=== PATIENT | female | born 1945 | race African-American/Black ===

== ENCOUNTER 2017-10-22 19:43 | Observation (INO) | payer OTHER ==
[~2017-10-22] VITALS: Ht 167.6 cm; Wt 79.1 kg
[~2017-10-22 19:43] MED LIST: ADULT ASPIRIN81 MG PO; ANALGESIC BALM28 GM TP; Colace PO; Feosol PO; LIDODERM 5% P1 PATCH TD; LOTREL 10/21 CAPSULE PO; LOTREL 5/101 CAPSULE PO; PLAVIX75 MG PO; PRILOSEC OTC20 M1 PO; Protonix PO; SENNA LAXATIVE8.6 MG PO; THERAGRAN1 TABLET PO; TYLENOL REGULA325 MG PO; ULTRAM50 MG PO
[2017-10-22 21:04] LABS: BASOPHIL (%) 0.4 % (0-1); EOSINOPHIL (%) 1.7 % (0-5); EOSINOPHIL COUNT 0.1 K/uL (0-0.3); HEMATOCRIT 32.8 % (36.0-46.0); HEMOGLOBIN 11.1 G/DL (11.9-15.5); IMMATURE GRANULOCYTE (%) 0.4 % (0.0-0.7); LYMPHOCYTE COUNT 2.2 K/uL (1.0-2.8); MCH 30.3 PG (29.0-34.0); MCHC 33.8 G/DL (30.0-36.0); MCV 89.6 FL (83-99); MONOCYTE (%) 10.7 % (3-12); MONOCYTE COUNT 0.5 K/uL (0-0.8); NEUTROPHIL (%) 41.8 % (45-76); PLATELET COUNT 209 K/uL (156-360); RBC DIS.WIDTH-CV 13.1 % (11.8-14.6); RBC DIS.WIDTH-SD 42.8 % (39-53); RED BLOOD COUNT 3.66 M/uL (3.80-5.20); WHITE BLOOD COUNT 4.8 K/uL (4.1-10.2)
[2017-10-22 21:13] LABS: PTT 29.5 SEC (25-37)
[2017-10-22 21:20] LABS: CHLORIDE 105 mEq/L (99-109); POTASSIUM 3.8 mEq/L (3.7-5.4); SODIUM 144 mEq/L (136-147)
[2017-10-22 21:22] LABS: GLUCOSE 117 mg/dL (70-99); TOTAL PROTEIN 6.5 g/dL (6.4-8.3)
[2017-10-22 21:24] LABS: TOTAL BILIRUBIN 0.7 mg/dL (0.0-1.0)
[2017-10-22 21:26] LABS: ALKALINE PHOSPHATASE 92 IU/L (3-129); CREATININE 0.9 mg/dL (0.6-1.3); GFR ESTIMATE (CALCULATED) > 59 mL/min/
[2017-10-22 21:27] LABS: AST (GOT) 21 IU/L (2-34); UREA NITROGEN (BUN) 14 mg/dL (9-23)
[2017-10-22 21:28] LABS: DIRECT BILIRUBIN 0.3 mg/dL (0.0-0.3)
[2017-10-22 21:29] LABS: ALT (GPT) 28 IU/L (3-49); LIPASE 67 U/L (1.0-51.0); TROP-I INTERPRETATION NEGATIVE; TROPONIN-I < 0.01 ng/mL (0.0-0.30)
[2017-10-22 23:59] LABS: APPEARANCE SL.HAZY ((CLEAR)); BILIRUBIN NEGATIVE; BLOOD NEGATIVE; COLOR YELLOW ((YELLOW)); GLUCOSE (STRIP) NEGATIVE; KETONES NEGATIVE; LEUKOCYTES TRACE; NITRITE POSITIVE; PROTEIN (STRIP) 30; UROBILINOGEN 0.2 MG/DL (0.2-1.0)
[2017-10-23] MEDS ORDERED: PLAVIX75 MG PO (00:26)
[2017-10-23] MEDS ORDERED: METOPROLOL SUCC50 MG PO (00:26)
[2017-10-23] MEDS ORDERED: ATORVASTATIN CA40 MG PO (00:26)
[2017-10-23] MEDS ORDERED: SERTRALINE HCL100 MG PO (00:26)
[2017-10-23 00:35] LABS: BACTERIA NONE SEEN /HPF; EPITHELIAL CELLS RARE /HPF; MUCUS TRACE /LPF; RED BLOOD CELLS 0-5 /HPF (0-5); UCUL ADDED? NO; WHITE BLOOD CELLS 0-5 /HPF (0-5)
[2017-10-23 03:08] VITALS: BP 163/76
[2017-10-23 07:31] LABS: TROP-I INTERPRETATION NEGATIVE; TROPONIN-I < 0.01 ng/mL (0.0-0.30)
[2017-10-23 07:34] LABS: HEMATOCRIT 32.8 % (36.0-46.0); MCH 30.5 PG (29.0-34.0); MCHC 33.5 G/DL (30.0-36.0); MCV 90.9 FL (83-99); PLATELET COUNT 204 K/uL (156-360); RBC DIS.WIDTH-CV 13.3 % (11.8-14.6); RED BLOOD COUNT 3.61 M/uL (3.80-5.20); WHITE BLOOD COUNT 5.4 K/uL (4.1-10.2)
[2017-10-23 07:37] VITALS: BP 131/61
[2017-10-23 07:56] LABS: HDL CHOLESTEROL 49 MG/DL (Desirable>=50); LDL CHOLESTEROL 43 mg/dL (Desirable<100); NON-HDL CHOLESTEROL 54 mg/dL (Desirable<160); TOTAL CHOLESTEROL 103 mg/dL (Desirable<200); TRIGLYCERIDES 56 MG/DL (Normal: <150)
[2017-10-23 09:45] LABS: HEMOGLOBIN A1c (GLYCOHEMOGLOB) 5.8 % (Below 5.7)
[2017-10-23 12:02] VITALS: BP 130/70
[2017-10-23 12:03] LABS: TROP-I INTERPRETATION NEGATIVE; TROPONIN-I < 0.01 ng/mL (0.0-0.30)
[2017-10-23] MEDS ORDERED: LISINOPRIL20 MG PO (14:45)
[2017-10-23] MEDS ORDERED: AUGMENTIN875 MG PO (14:46)
[2017-10-23 16:06] VITALS: BP 124/72
== END 2017-10-23 18:33 | disposition home or self-care (01) ==
LOC: EME 19:43 → EDOF 10-23 02:05 → ENRESERV 10-23 02:06 → 4SOUTH 10-23 02:55
PROVIDERS: Emergency Medicine; Hospitalist
DX: R07.9 Chest pain, unspecified (principal); R53.1 Weakness; N39.0 Urinary tract infection, site not specified; I69.398 Other sequelae of cerebral infarction; I10 Essential (primary) hypertension; E78.5 Hyperlipidemia, unspecified; K21.9 Gastro-esophageal reflux disease without esophagitis; R41.0 Disorientation, unspecified; Z79.82 Long term (current) use of aspirin
CPT/HCPCS: 70450; 70551; 71046; 80048; 80061; 80076; 81003; 83036; 83690; 83880; 84484; 85025; 85027; 85379; 85610; 85730; 93005; G0378; G8978 GP CI; G8979 GP CH; G8980 GP CI; J0696; J1650; J2405